=== PATIENT | male | born 1980 | race Caucasian/White ===

== ENCOUNTER 2018-01-12 11:41 | Outpatient (CLI) | payer MEDICAID | END 2018-01-12 23:59 | disposition home or self-care (01) | LOC: CARD DIAG 11:41 | PROVIDERS: ATTEND Physician Assistant | DX: I05.8 Other rheumatic mitral valve diseases (principal); R07.2 Precordial pain; F17.200 Nicotine dependence, unspecified, uncomplicated | CPT/HCPCS: 93306 ==